=== PATIENT | female | born 1940 | race Caucasian/White ===

== ENCOUNTER → 2020-09-16 | Outpatient (CLI) | payer OTHER ==
[~2020-09-16] MED LIST: ACETAMINOPHEN-1 EAC1 PO; ASPIRIN; CEPHALEXIN 500500 M3 PO; CRESTOR40 MG PO; IMDUR 30 MG TAB30 MG PO; TOPROL XL25 MG PO
--- NOTE | 2020-09-16 16:21 | CARDNUC ---
[place] [address] CARDIAC NUCLEAR IMAGING REPORT Name: RADHA CHENG Room: [facility]#: [id number] Admission: 09/16/20 Attend Phys: Elder Stevens, Discharge: Date of : 42 Date of Service: 09/16/20 1621 Report #: [id number] THIS REPORT FOR: cc: Elzbieta Jung Maggie M. DO Liston, Michael J. MD [facility] ~ APPROVED REPORT Study performed: 09/16/2020 11:18:53 Exam: Nuclear Stress Test Indication: CARRILLO, s/p GA and Catherization. Patient Location: Out-Patient Stress Tech: Arina Xiong Stress Nurse: Joe Oakes Tech:SYLVIA Nichole Ht: 5 ft 6 in Wt: 131 lbs BSA: 1.67 m2 BMI: 21.14 Medical History Medical History: Angina, CAD s/p GA, Catherization, Carotid Stenosis, HTN, HLD, current smoker, CARRILLO, back and hip pain. Medications: ASA 81 Mg, Imdur, Metoprolol Succinate, Rosuvastatin. Allergies: No known drug allergies Cardiac Risk Factors: Age, FHX of CAD, HTN, Hyperlipidemia, Smoking, SOB, Tobacco History (Current/Recent), Carotid Stenosis. Previous Cardiac Procedures: Myocardial infarction, Catherization. Pretest Chest Pain Characteristics: No chest pain Exercise History: Indeterminate Physical Disabilities: Hip and back pain. Meds Held (24 hrs): Imdur, Metoprolol Succinate. Stress Test Details Stress Test: Pharmacologic stress testing performed using 0.4 mg of regadenoson per 5 mL given IV over 10 seconds. Reason for pharmacologic stress test: Hip and back pain.. HR Resting HR: 67 bpm Max Heart Rate (APMHR): 142 bpm Max HR Achieved: 106 bpm Target HR (85% APMHR): 120 bpm % of APMHR: 74 [place] [address] CARDIAC NUCLEAR IMAGING REPORT Name: RADHA CHENG Room: [facility]#: [id number] Admission: 09/16/20 Attend Phys: Elder Stevens, Discharge: Date of : 42 Date of Service: 09/16/20 1621 Report #: [id number] Recovery HR: 94 bpm BP Resting BP: 127/84 mmHg Max BP: 123/76 mmHg ECG Resting ECG: Sinus Rhythm Stress ECG: Sinus Tachycardia ST Change: None Arrhythmia: None Recovery ECG: Sinus Rhythm Recovery ST Change: None Recovery Arrhythmia: None Clinical Reason for Termination: Completed protocol Stress Symptoms: 7/10 chest tightness. Exercise duration: 00 min 00 sec Exercise capacity: 1.00 METs The patient had some chest discomfort with Lexiscan infusion which was likely due to medication effect in light of myocardial perfusion imaging findings. Nurse Comments A 79 year old female presented for a sitting Lexiscan r/t increased SOA, CAD s/p GA and catherization. Test well tolerated. Recovery unremarkable. Patient was stable and stated she felt good when escorted to Nuclear Medicine for imaging. Stress ECG Conclusion The baseline twelve-lead EKG shows sinus rhythm with no significant ST segment abnormality. EKGs obtained during and post Lexiscan infusion show sinus rhythm and sinus tachycardia with no significant ST segment changes when compared to baseline. There were no stress-induced arrhythmias. NM EXAM: Myocardial Perfusion REST/STRESS Imaging Protocol: Rest Tc-99m/Stress Tc-99m 1 day Resting Data Rest SPECT myocardial perfusion imaging was performed in supine position 30 minutes following the intravenous injection of 10.5 mCi of Tc-99m Sestamibi. Time of rest injection: 824 Date: 09/16/2020 The images were gated to evaluate regional wall motion [place] [address] CARDIAC NUCLEAR IMAGING REPORT Name: RADHA CHENG Room: [facility] Stephon#: [id number] Admission: 09/16/20 Attend Phys: Elder Stevens, Discharge: Date of : 42 Date of Service: 09/16/20 1621 Report #: [id number] left ventricular ejection fraction. Administration Route: IV Administration Site: Left AC Pharmacologic Stress Pharmacologic stress test was performed by injecting Regadenoson 0.4 mg IV push followed by the intravenous injection of 30.2 mCi of Tc-99m Sestamibi. Time of stress injection: 1115 Date: 09/16/2020 Administration Route: IV Administration Site: Left AC Gated Stress SPECT was performed 40 minutes after stress injection. The images were gated to evaluate regional wall motion and calculate left ventricular ejection fraction. Prone imaging was performed. Study Quality Study: Good Artifact: No artifact Study Data At rest, the left ventricular ejection fraction was 74%.. Post stress, the left ventricular ejection was 85%.. TID = 0.64. Perfusion Perfusion images obtained at rest and post Lexiscan stress show no defect to suggest infarct or ischemia. Wall Motion Normal left ventricular wall motion. Nuclear Conclusion ECG Findings: negative for ischemia Clinical Findings: equivocal Nuclear Findings: negative for ischemia Exercise Capacity: not assessed Left Ventricular Function: normal Risk Study: low Myocardial perfusion images show no defect to suggest infarct or ischemia. Left ventricular systolic function is normal on gated studies. This is a low risk study. <Conclusion> The baseline twelve-lead EKG shows sinus rhythm [place] [address] CARDIAC NUCLEAR IMAGING REPORT Name: RADHA CHENG Room: [facility]#: [id number] Admission: 09/16/20 Attend Phys: Elder Stevens, Discharge: Date of : 42 Date of Service: 09/16/20 1621 Report #: [id number] segment abnormality. EKGs obtained during and post Lexiscan infusion show sinus rhythm and sinus tachycardia with no significant ST segment changes when compared to baseline. There were no stress-induced arrhythmias. <ELECTRONICALLY SIGNED> By: Edler Stevens MD, FACC 09/16/20 162 20 20 Elder Stevens MD, FACC /INF
== END ==
LOC: M.NUC 08-17 14:23
PROVIDERS: ATTEND Internal Medicine Cardiovascular Disease
DX: I25.10 Atherosclerotic heart disease of native coronary artery without angina pectoris (principal)

== ENCOUNTER 2021-10-12 11:11 | Emergency (ER) | payer OTHER ==
[~2021-10-12] VITALS: Ht 167.6 cm; Wt 60.3 kg
[2021-10-12 13:21] LABS: HEMATOCRIT 45.1 % (37.0-47.0); HEMOGLOBIN 15.1 gm/dL (12.0-15.0); MCH 31.5 pg (26.0-34.0); MCHC 33.4 g/dL (28.0-37.0); MCV 94.2 fL (80.0-100.0); MPV 10.1 fl. (7.2-11.1); NUCLEATED RBCS 0 /100WBC; PLATELET COUNT* 124 thou/uL (150-400); RBC 4.78 mil/uL (4.20-5.00); RDW-CV 13.7 % (10.5-14.5); WBC 13.4 thou/uL (4.0-11.0)
[2021-10-12 13:32] LABS: CALCIUM 9.2 mg/dL (8.5-10.1); CREATININE 1.3 mg/dL (0.6-1.3); POTASSIUM 4.4 mmol/L (3.5-5.1)
[2021-10-12 13:37] LABS: ALBUMIN 3.8 g/dL (3.4-5.0); TOTAL BILIRUBIN 1.4 mg/dL (<0.1-1.0); TOTAL PROTEIN 7.6 g/dL (6.4-8.2)
[2021-10-12 14:18] LABS: ABSOLUTE LYMPHOCYTES 0.5 thou/uL (0.8-5.3); ABSOLUTE MONOCYTES 0.3 thou/uL (0.0-1.2); ABSOLUTE NEUTROPHILS 12.6 thou/uL (1.6-8.1)
[2021-10-12 14:19] LABS: PLATELET ESTIMATE DECREASED
[2021-10-12 18:39] VITALS: BP 127/62
--- NOTE | 2021-10-13 11:16 | EKG ---
[place] [address] ELECTROCARDIOGRAM REPORT Name: RADHA CHENG Room: [facility]#: [id number] Admission: 10/12/21 Attend Phys: Discharge: 10/12/21 Date of : 42 Date of Service: 10/12/21 1246 Report #: [id number] THIS REPORT FOR: //name// [facility] ED Test Date: 2021-10-12 Test Time: 12:46:33 Pat Name: RADHA CHENG Department: Room: Gender: [employer]er: JESSICA : 1940 Requested By: Luis Bruce Order Number: [id number] MD: Óscar Calzada Measurements Intervals [place] Rate: 65 P: -22 RI: 156 QRS: -82 QRSD: 105 T: 91 QT: 430 QTc: 448 Interpretive Statements Sinus rhythm Incomplete RBBB and LAFB Nonspecific T abnormalities, lateral leads Compared to ECG 02/18/2009 10:29:01 IVCD of the right type persists T-wave abnormality now present Sinus bradycardia no longer present Electronically Signed On 10-13-2021 11:16:41 FLIGHT NURSE by Óscar Calzada [email or web address] <ELECTRONICALLY SIGNED> By: Óscar Calzada MD, FACC 10/13/21 1116 1246 1246 Óscar Calzada MD, FACC /EPI
== END 2021-10-12 18:41 | disposition left against medical advice (07) ==
LOC: M.ERS 11:11
PROVIDERS: Emergency Medicine
DX: M31.4 Aortic arch syndrome [Takayasu] (principal); Z20.822 Contact with and (suspected) exposure to COVID-19; F17.210 Nicotine dependence, cigarettes, uncomplicated; Z98.51 Tubal ligation status; Z79.899 Other long term (current) drug therapy